=== PATIENT | female | born 1985 | race Caucasian/White ===

== ENCOUNTER 2017-08-21 19:25 | Emergency (ER) | payer OTHER ==
[~2017-08-21] VITALS: Ht 154.9 cm; Wt 90.7 kg
[~2017-08-21 19:25] MED LIST: BUSP15; CLON.5; IBUP800 PO; Mirena1 EACH; OXYACE5T PO; SERT50
[2017-08-21] MEDS ORDERED: IBUP600 PO (21:52)
== END 2017-08-21 22:05 | disposition home or self-care (01) ==
LOC: ER 19:25
DX: S01.111A Laceration without foreign body of right eyelid and periocular area, initial encounter (principal); S83.92XA Sprain of unspecified site of left knee, initial encounter; S60.222A Contusion of left hand, initial encounter; S60.221A Contusion of right hand, initial encounter; V00.131A Fall from skateboard, initial encounter; Z79.899 Other long term (current) drug therapy
CPT/HCPCS: 12011; 73564; 90471; 90714; 99283

== ENCOUNTER → 2017-08-26 | Outpatient (CLI) | payer OTHER ==
[~2017-08-26] MED LIST changes: +IBUP600 PO
== END ==
LOC: LAB SHORT 12:57 → LAB EV 12:57
DX: J02.9 Acute pharyngitis, unspecified (principal)
CPT/HCPCS: 87070

== ENCOUNTER → 2020-10-21 | Outpatient (CLI) | payer OTHER ==
[2020-10-23 15:11] LABS: HPV 16 Negative (Negative); HPV 18 Negative (Negative); HPV OTHER HR TYPES Negative (Negative)
== END | disposition home or self-care (01) ==
LOC: LAB SHORT 09:40 → LAB 09:40
PROVIDERS: Student in an Organized Health Care Education/Training Program
DX: Z01.419 Encounter for gynecological examination (general) (routine) without abnormal findings (principal)
CPT/HCPCS: 87624; G0145

== ENCOUNTER 2021-02-19 09:16 | Emergency (ER) | payer OTHER ==
[~2021-02-19] VITALS: Ht 154.9 cm; Wt 74.8 kg
[2021-02-19 09:44] LABS: BASOPHILS ABSOLUTE AUTO 0.02 K/mm3 (0.00-0.23); BASOPHILS PERCENT AUTO 0 % (0-2); EOSINOPHILS ABSOLUTE AUTO 0.12 K/mm3 (0.00-0.68); EOSINOPHILS PERCENT AUTO 2 % (0-6); Hematocrit 38.8 % (33.0-51.0); IMMATURE GRAN ABSOLUTE AUTO 0.01 K/mm3 (0.00-0.10); IMMATURE GRAN PERCENT AUTO 0 % (0-1); LYMPHOCYTES PERCENT AUTO 19 % (21-46); MONOCYTES ABSOLUTE AUTO 0.49 K/mm3 (0.16-1.47); MONOCYTES PERCENT AUTO 7 % (4-13); Mean Corpuscular HGB 31.7 pg (26.0-34.0); Mean Corpuscular HGB Conc 33.5 g/dL (31.5-36.5); Mean Corpuscular Volume 95 fL (80-100); Mean Platelet Volume 10.5 fL (9.1-12.4); NEUTROPHILS ABSOLUTE AUTO 4.77 K/mm3 (1.96-9.15); NEUTROPHILS PERCENT AUTO 71 % (41-73); Platelet Count 174 K/mm3 (150-400); RDW Coefficient Variation 12.2 % (11.7-14.2); RDW Standard Deviation 42.7 fL (35.1-46.3); White Blood Cell Count 6.71 K/mm3 (4.00-11.30)
[2021-02-19 10:04] LABS: Anion Gap 5 mmol/L (6-16); Blood Urea Nitrogen 10 mg/dL (8-24); CO2, Blood 26 mmol/L (21-32); Calcium, Blood 8.7 mg/dL (8.5-10.1); Chloride, Blood 107 mmol/L (98-108); Creatinine, Blood 0.56 mg/dL (0.40-1.00); Glomerular Filtration Rate >60 (60-); Glucose, Blood 82 mg/dL (70-99); Potassium, Blood 3.8 mmol/L (3.5-5.5); Sodium, Blood 138 mmol/L (136-145)
[2021-02-19] MEDS ORDERED: CEPH500 PO (10:16)
[2021-02-19] MEDS ORDERED: LORCET 5-325 M1 EACH PO (10:17)
== END 2021-02-19 10:37 | disposition home or self-care (01) ==
LOC: ER 09:16
PROVIDERS: Emergency Medicine
DX: R55 Syncope and collapse (principal); S42.412A Displaced simple supracondylar fracture without intercondylar fracture of left humerus, initial encounter for closed fracture; S41.132A Puncture wound without foreign body of left upper arm, initial encounter; W34.00XA Accidental discharge from unspecified firearms or gun, initial encounter; Z79.899 Other long term (current) drug therapy
CPT/HCPCS: 36415; 73080; 80048; 84703; 85025; 99284-25; A9270

== ENCOUNTER 2021-12-05 12:34 | Emergency (ER) | payer OTHER ==
[~2021-12-05] VITALS: Ht 157.5 cm; Wt 72.6 kg
[~2021-12-05 12:34] MED LIST changes: +CEPH500 PO; +LORCET 5-325 M1 EACH PO
[2021-12-05] MEDS ORDERED: HYDR1TAB94 PO (14:10)
== END 2021-12-05 14:20 | disposition home or self-care (01) ==
LOC: ER 12:34
DX: S62.396A Other fracture of fifth metacarpal bone, right hand, initial encounter for closed fracture (principal); W01.0XXA Fall on same level from slipping, tripping and stumbling without subsequent striking against object, initial encounter; Z79.899 Other long term (current) drug therapy
CPT/HCPCS: 73130; A9270

== ENCOUNTER → 2023-08-03 | Outpatient (CLI) | payer OTHER ==
[~2023-08-03] MED LIST changes: +HYDR1TAB94 PO
[2023-08-03 11:44] LABS: BASOPHILS ABSOLUTE AUTO 0.05 K/mm3 (0.00-0.23); BASOPHILS PERCENT AUTO 1 % (0-2); EOSINOPHILS ABSOLUTE AUTO 0.21 K/mm3 (0.00-0.68); EOSINOPHILS PERCENT AUTO 5 % (0-6); Hematocrit 41.5 % (33.0-51.0); Hemoglobin 14.5 g/dL (11.5-16.0); IMMATURE GRAN ABSOLUTE AUTO 0.01 K/mm3 (0.00-0.10); IMMATURE GRAN PERCENT AUTO 0 % (0-1); LYMPHOCYTES ABSOLUTE AUTO 1.38 K/mm3 (0.84-5.20); LYMPHOCYTES PERCENT AUTO 33 % (21-46); MONOCYTES ABSOLUTE AUTO 0.32 K/mm3 (0.16-1.47); MONOCYTES PERCENT AUTO 8 % (4-13); Mean Corpuscular HGB 32.4 pg (26.0-34.0); Mean Corpuscular HGB Conc 34.9 g/dL (31.5-36.5); Mean Corpuscular Volume 93 fL (80-100); Mean Platelet Volume 11.3 fL (9.1-12.4); NEUTROPHILS ABSOLUTE AUTO 2.19 K/mm3 (1.96-9.15); NEUTROPHILS PERCENT AUTO 53 % (41-73); Platelet Count 220 K/mm3 (150-400); RDW Coefficient Variation 12.7 % (11.7-14.2); Red Blood Cell Count 4.48 M/mm3 (3.80-5.20); White Blood Cell Count 4.16 K/mm3 (4.00-11.30)
[2023-08-03 12:36] LABS: Anion Gap 11 mmol/L (3-11); Blood Urea Nitrogen 15 mg/dL (8-24); Bun/Creatinine Ratio 23.5 (12.0-20.0); CHOL/HDL RATIO 2.7; CO2, Blood 21 mmol/L (21-32); Calcium, Blood 8.9 mg/dL (8.5-10.1); Chloride, Blood 110 mmol/L (98-108); Cholesterol 176 mg/dL (50-200); Creatinine, Blood 0.64 mg/dL (0.40-1.00); Glomerular Filtration Rate 117 (60-); Glucose, Blood 96 mg/dL (70-99); HDL Cholesterol 65 mg/dL (>39); LDL/HDL RATIO 1.6; Low Density Lipoprotein Chol 103 mg/dL (0-110); Potassium, Blood 3.6 mmol/L (3.5-5.5); Sodium, Blood 138 mmol/L (136-145); Triglycerides 42 mg/dL (30-140); Very Low Density Lipoprot Chol 8 mg/dL (6-28)
[2023-08-04 16:15] LABS: HEPATITIS C AB CIA INTERP Negative (Negative); HEPATITIS C ANTIBODY CIA INDEX 0.07 IV
[2023-08-04 19:01] LABS: HIV 1,2 COMBO ANTIGEN/ANTIBODY Negative (Negative)
== END | disposition home or self-care (01) ==
LOC: LAB SHORT 09:55 → LAB 09:55
PROVIDERS: Student in an Organized Health Care Education/Training Program
DX: Z00.00 Encounter for general adult medical examination without abnormal findings (principal); Z11.3 Encounter for screening for infections with a predominantly sexual mode of transmission
CPT/HCPCS: 80048; 80061; 83036; 84443; 85025; 86592; 86803; 87389

== ENCOUNTER → 2024-02-27 | Outpatient (CLI) | payer OTHER ==
[2024-02-27 10:12] LABS: U Amphetamine Screen Not Detected; U Barbituate Screen Not Detected; U Benzodiazapine Screen Not Detected; U Buprenorphine Screen Not Detected; U Cannabinoids Screen DETECTED; U Cocaine Screen Not Detected; U Methadone Screen Not Detected; U Methamphetamine Screen Not Detected; U Opiates Screen Not Detected; U Oxycodone Screen Not Detected; U Phencyclidine Screen Not Detected
[2024-03-01 07:41] LABS: 11-NOR-9-CARBOXY-THC,URN,QUANT >500 ng/mL
== END ==
LOC: LAB SHORT 08:17 → LAB 08:17
PROVIDERS: Nurse Practitioner Psychiatric/Mental Health
DX: F33.9 Major depressive disorder, recurrent, unspecified (principal)
CPT/HCPCS: G0480

== ENCOUNTER → 2025-03-18 | Outpatient (CLI) | payer OTHER ==
[2025-03-18 13:41] LABS: BASOPHILS ABSOLUTE AUTO 0.06 K/mm3 (0.00-0.23); BASOPHILS PERCENT AUTO 1 % (0-2); EOSINOPHILS ABSOLUTE AUTO 0.45 K/mm3 (0.00-0.68); EOSINOPHILS PERCENT AUTO 8 % (0-6); Hematocrit 41.7 % (33.0-51.0); Hemoglobin 14.3 g/dL (11.5-16.0); IMMATURE GRAN ABSOLUTE AUTO 0.01 K/mm3 (0.00-0.10); IMMATURE GRAN PERCENT AUTO 0 % (0-1); LYMPHOCYTES ABSOLUTE AUTO 1.53 K/mm3 (0.84-5.20); LYMPHOCYTES PERCENT AUTO 28 % (21-46); MONOCYTES ABSOLUTE AUTO 0.33 K/mm3 (0.16-1.47); MONOCYTES PERCENT AUTO 6 % (4-13); Mean Corpuscular HGB Conc 34.3 g/dL (31.5-36.5); Mean Corpuscular Volume 92 fL (80-100); NEUTROPHILS ABSOLUTE AUTO 3.05 K/mm3 (1.96-9.15); NEUTROPHILS PERCENT AUTO 56 % (41-73); NRBC ABSOLUTE 0.00 K/mm3 (0.00-0.02); NRBC Auto 0.0 /100 WBC (0.0-0.2); Platelet Count 233 K/mm3 (150-400); RDW Coefficient Variation 12.6 % (11.7-14.2); RDW Standard Deviation 42.9 fL (35.1-46.3)
[2025-03-18 14:22] LABS: Alanine Aminotransfer (ALT/SGP 31 U/L (12-78); Albumin, Blood 3.7 g/dL (3.4-5.0); Albumin/Globulin Ratio 1.0 (0.8-1.8); Anion Gap 9 mmol/L (3-11); Aspartate Aminotrans (AST/SGOT 19 U/L (12-37); Bilirubin, Total 0.5 mg/dL (0.1-1.0); Blood Urea Nitrogen 12 mg/dL (8-24); CHOL/HDL RATIO 3.2; CO2, Blood 23 mmol/L (21-32); Calcium, Blood 8.5 mg/dL (8.5-10.1); Chloride, Blood 108 mmol/L (98-108); Cholesterol 213 mg/dL (50-200); Creatinine, Blood 0.61 mg/dL (0.40-1.00); Globulin, Blood 3.8 g/dL (2.2-4.0); Glucose, Blood 81 mg/dL (70-99); HDL Cholesterol 66 mg/dL (>39); LDL/HDL RATIO 2.0; Low Density Lipoprotein Chol 133 mg/dL (0-110); Potassium, Blood 3.8 mmol/L (3.5-5.5); Sodium, Blood 136 mmol/L (136-145); Thyroid Stimulating Hormone 1.870 uIU/mL (0.360-4.800); Total Protein, Blood 7.5 g/dL (6.4-8.2); Triglycerides 71 mg/dL (30-140); Very Low Density Lipoprot Chol 14 mg/dL (6-28)
== END ==
LOC: LAB SHORT 11:36 → LAB 11:36
PROVIDERS: Student in an Organized Health Care Education/Training Program
DX: Z00.00 Encounter for general adult medical examination without abnormal findings (principal)
CPT/HCPCS: 80053; 80061; 83036; 84443; 85025